=== PATIENT | female | born 1995 | race Hispanic/Latino ===

== ENCOUNTER 2017-09-23 01:58 | Inpatient (IN) | payer OTHER ==
[2017-09-23 02:25] VITALS: BMI 29.9
[2017-09-23] MEDS ORDERED: Ibuprofen 800 MG TAB PO PRN (04:03)
[2017-09-23] MEDS ORDERED: HYDROcodone/Acetaminophen 5/325 mg Tablet PO PRN ×4 (04:03→21:56)
[2017-09-23] MEDS ORDERED: Lidocaine 1% (PF) 30 ML VIAL SC PRN (04:03)
[2017-09-23] MEDS ORDERED: Ondansetron HCl/PF 4 MG/2 ML Vial IVP PRN ×3 (04:03→21:56)
[2017-09-23] MEDS ORDERED: Ondansetron ODT 4 MG TAB PO PRN (04:10)
[2017-09-23] MEDS ORDERED: Bupivacaine 0.5% 20 ML, fentaNYL Citrate/PF 400 MCG in Sodium Chloride 0.9% 72 ML EPIDURAL SCH (04:15)
[2017-09-23] MEDS ORDERED: Lactated Ringer's 1,000 ML IV SCH (04:15)
[2017-09-23] MEDS ORDERED: DISCONTINUE ALL PREVIOUS NARCOTICS FS SCH (04:15)
[2017-09-23] MEDS: Lactated Ringer's 1,000 ML IV SCH (04:18)
[2017-09-23 04:41] LABS: Hemoglobin 13.5 g/dL (12.0-16.0); Mean Corpuscular HGB CONC 34.5 g/dL (32.0-36.0); Mean Corpuscular Hemoglobin 30.1 pg (27.0-31.0); Mean Corpuscular Volume 87.2 fl (81.0-99.0); Mean Platelet Volume 10.2 fL (7.4-10.4); Platelet Count 142 thou/uL (130-400); RBC Distribution Width 13.4 % (11.5-14.5); Red Blood Cell (RBC) Count 4.49 mill/uL (4.20-5.40); White Blood Cell (WBC) Count 11.7 thou/uL (4.8-10.8)
[2017-09-23 04:51] LABS: HBSAg Index 0.15 S/CO (0-0.99); Hep B Surf Ag Non-Reactive S/CO (NonReactive)
[2017-09-23] MEDS ORDERED: Morphine 4 MG/ML Carpuject SLOW IVP SCH (05:00)
[2017-09-23 05:16] LABS: Syphilis Antibody Nonreactive (Nonreactive); Syphilis Antibody Index 0.03 S/CO (<1.00 Non-Reactive)
[2017-09-23] MEDS ORDERED: Acetaminophen 325 MG TAB PO PRN (05:49)
[2017-09-23] MEDS ORDERED: ePHEDrine/0.9% NaCl/PF SYRINGE 50 mg/10 ml SLOW IVP PRN (05:49)
[2017-09-23] MEDS ORDERED: Eucerin (Mineral Oil/Petrolatum,White) 30 gm Jar TOP PRN (05:49)
[2017-09-23] MEDS ORDERED: Promethazine HCl 25 MG/ML VIAL IM PRN (05:49)
[2017-09-23] MEDS ORDERED: Lactated Ringer's 500 ML IV PRN (05:49)
[2017-09-23] MEDS ORDERED: diphenhydrAMINE 50 MG/ML VIAL IVP PRN (05:49)
[2017-09-23] MEDS ORDERED: Naloxone HCl 0.4 mg/ml Vial IVP PRN ×2 (05:49)
[2017-09-23] MEDS ORDERED: Communication Order-Pharmacy FS SCH (06:00)
[2017-09-23] MEDS ORDERED: Fentanyl 4mcg/Marcaine 0.1% Cassette 100 ML EPIDURAL SCH (06:00)
--- NOTE | 2017-09-23 08:14 | PDOC.LDHP ---
Labor and Delivery H&P Chief complaint: contractions HPI: Patient started gianna at 2140 09/22/17 and came to the hospital at 0230 inthe morning. The baby is moving normally. Her water is not intact. Current gestational age (weeks): 40 Due date: 09/17/17 Dating criteria: first trimester ultrasound Grav: 1 Para: 0 Current complications: none Abnormal US findings: No Past Medical History: gastrochisis repaired as infant. Intentinal obstruction 2014 XLab LSIL pap Current medications: pre-amber vitamins, iron Previous surgical history: none (Gastorchisis repair Xlap for intestinal obstruction 2014) Allergies/Adverse Reactions: Allergies Allergy/AdvReac Type Severity Reaction Status Date / Time No Known Allergies Allergy Verified 08/22/14 02:40 - Physical Exam Vital signs reviewed and normal: yes General: NAD, resting Heart: RRR Lungs: nonlabored breathing Abdomen: gravid FHT: category 2 (minimal to moderate variability, +accel, no decels, 130 bpm) - Vaginal Exam cm dilated: 6 Effacement: 100% Station: -2 - OB Labs RH: positive Antibody Screen: negative HIV: negative RPR: negative HEPSAg: negative 1 hour GCT: negative GBS: negative Urine drug screen: not done Rubella: immune - Assessment L&D Assessment: term patient in labor - Plan Plan: admit to L&D
[2017-09-23] MEDS: Dextrose 5%-Lactated Ringers 1,000 ML IV SCH (08:40)
[2017-09-23] MEDS ORDERED: Gentamicin 80 MG/2 ML VIAL IVPB SCH (12:15)
[2017-09-23] MEDS ORDERED: Acetaminophen 500 MG TAB PO SCH ×2 (12:15→13:00)
[2017-09-23] MEDS ORDERED: Gentamicin Sulfate 310 MG in Sodium Chloride 0.9% 100 ML IVPB SCH (12:15)
[2017-09-23] MEDS ORDERED: CEFAZOLIN/Water 2 GM/20 ML SYRINGE ONE ×2 (12:26→14:17)
[2017-09-23] MEDS: NS / Oxytocin 40 units/1000ml 1,000 ML IV PRN ×2 (13:05→14:14)
--- NOTE | 2017-09-23 13:26 | PDOC.OPDEL ---
OB Operative/Delivery Note Delivery Dr/Surgeon: Graciela Perdue CNM Assist: Dr. Valladares Pre-Delivery Diagnosis: active labor, non-reassuring tracing ( tachycardia) Procedure/Post Delivery Dx: spontaneous vaginal delivery Weeks gestation: 40 Anesthesia: epidural - Findings A Sex: male Weight: 8 lb 1 oz - 1 min: 6 - 5 min: 7 - Additional Findings/Plan Placenta delivered: spontaneous Repaired Obstetrical Laceration: 1st degree Estimated blood loss: 400mL Compilations/Other Findings: tachycardia starting at approximately 1140 with FHT 200bpm. Maternal tachycardia 140-180s. Maternal fever 103.1 chorioamnionitis, thick meconium, sepsis. Dr. Valladares was consulted immediately prior to delivery and was present at the bedside until completed in case an expidited delivery was needed with Vaccuum. We discussed case following the delivery and agreed on Plan of care for sepsis workup with blood cultures and lactic acid labs. The patients clinical course was impoving quickly following delivery. IV antibiotics were continued. first degree perineal laceration repaired Post delivery plan: routine recovery (Continue ABX for 24 hours)
[2017-09-23 13:51] LABS: Actual Bicarbonate (HCO3a) 21.6 mEq/L (22-26); Actual Bicarbonate (HCO3v) 20 mEq/L (22-26); Base Excess -8.4 mEq/L (0 (+/- 2.5)); Base Excess (BEa) -8.2 mEq/L (0 (+/-) 2.5)
[2017-09-23] MEDS: Ampicillin 2 GM in Sodium Chloride 0.9% 100 ML IVPB SCH (14:44)
[2017-09-23 14:45] LABS: Hemoglobin 11.7 g/dL (12.0-16.0); Mean Corpuscular HGB CONC 34.1 g/dL (32.0-36.0); Mean Corpuscular Hemoglobin 30.2 pg (27.0-31.0); Mean Corpuscular Volume 88.5 fl (81.0-99.0); Mean Platelet Volume 10.1 fL (7.4-10.4); Platelet Count 128 thou/uL (130-400); RBC Distribution Width 13.3 % (11.5-14.5); Red Blood Cell (RBC) Count 3.87 mill/uL (4.20-5.40); White Blood Cell (WBC) Count 22.5 thou/uL (4.8-10.8)
[2017-09-23] MEDS ORDERED: Acetaminophen 325 MG TAB PO SCH (14:45)
[2017-09-23 14:58] LABS: Band 10 % (5-11); Lymphocytes 6 % (21-51); MDiff Complete? YES; Monocytes 10 % (0-10); Neutrophil 74 % (42-75); Ovalocytes SLIGHT = 2-5 cells (100X) (0-1/hpf); PLT Morphology Comment Appears Decreased; Polychromasia SLIGHT = 2-3 cells (100X) (0-2/hpf)
[2017-09-23 15:02] LABS: Lactic Acid 3.7 mmol/L (0.5-2.2)
[2017-09-23] MEDS ORDERED: Ampicillin 125 MG/5 ML VIAL SLOW IVP SCH (18:00)
[2017-09-23] MEDS ORDERED: Milk Of Magnesia 30 ML UDCUP PO PRN (21:56)
[2017-09-23] MEDS ORDERED: Adacel (T-DAP) 0.5 ML VIAL IM ONE (21:56)
[2017-09-23] MEDS ORDERED: Methylergonovine 0.2 MG/ML VIAL IM PRN (21:56)
[2017-09-23] MEDS ORDERED: NS / Oxytocin 40 units/1000ml 1,000 ML IV SCH (21:56)
[2017-09-23] MEDS ORDERED: Benzocaine/Menthol 20-0.5% 60 ML CAN TOP PRN (21:56)
[2017-09-23] MEDS ORDERED: Bisacodyl 10 MG SUPP PR PRN (21:56)
[2017-09-23 22:46] LABS: #Lymphocytes 2.6 thou/uL (1.20-3.40); #Monocytes 1.6 thou/uL (0.11-0.59); %Basophils 0.1 % (0.0-1.0); %Eosinophils 0.1 % (0.0-10.0); %Lymphocytes 15.2 % (21.0-51.0); %Monocytes 9.2 % (0.0-10.0); %Neutrophils 75.2 % (42.0-75.0); Hemoglobin 10.7 g/dL (12.0-16.0); Mean Corpuscular HGB CONC 33.4 g/dL (32.0-36.0); Mean Corpuscular Hemoglobin 29.7 pg (27.0-31.0); Mean Corpuscular Volume 88.8 fl (81.0-99.0); Mean Platelet Volume 9.9 fL (7.4-10.4); Platelet Count 126 thou/uL (130-400); RBC Distribution Width 13.6 % (11.5-14.5); Red Blood Cell (RBC) Count 3.59 mill/uL (4.20-5.40); White Blood Cell (WBC) Count 17.3 thou/uL (4.8-10.8)
[2017-09-24] MEDS: Docusate Calcium (SURFAK) 240 MG CAP PO SCH ×3 (05:13→22:53)
[2017-09-24] MEDS: Ibuprofen 800 MG TAB PO SCH ×4 (05:13→22:53)
[2017-09-24 08:27] LABS: Lactic Acid 1.3 mmol/L (0.5-2.2)
[2017-09-24 08:42] LABS: Band 16 % (5-11); Hemoglobin 11.2 g/dL (12.0-16.0); Large Platelets SLIGHT; Lymphocytes 21 % (21-51); MDiff Complete? YES; Mean Corpuscular HGB CONC 33.3 g/dL (32.0-36.0); Mean Corpuscular Hemoglobin 29.8 pg (27.0-31.0); Mean Corpuscular Volume 89.3 fl (81.0-99.0); Mean Platelet Volume 10.1 fL (7.4-10.4); Monocytes 7 % (0-10); Neutrophil 55 % (42-75); PLT Morphology Comment Appears Decreased; Platelet Count 124 thou/uL (130-400); RBC Distribution Width 13.5 % (11.5-14.5); RBC Morphology Normal; Reactive Lymphocytes 1 % (0-10); Red Blood Cell (RBC) Count 3.75 mill/uL (4.20-5.40); White Blood Cell (WBC) Count 14.7 thou/uL (4.8-10.8)
--- NOTE | 2017-09-24 09:54 | PDOC.PP ---
Post Progress Note Post Day #: 1 Subjective: norman is feeling much better, up to see in NICU. pumping, but not getting anything out. PO intake tolerated: yes Flatus: yes Ambulation: yes Vital Signs (12 hours) Temp Pulse Resp BP 09/24/17 08:00 98.6 F 85 18 09/24/17 04:00 98.6 F 85 18 101/51 L 09/24/17 00:00 98.3 F 88 18 116/55 L Weight Weight 169 lb - Physical Examination General: NAD Cardiovascular: RRR Respiratory: non-labored breathing Abdominal: appropriately TTP Fundus firm & at: Umbilicus Extremities: negative homans (B) Skin: no rash Neurological: no gross focal deficits Psychiatric: A&Ox3 Result Diagrams: 09/24/17 07:52 Additional Labs: Post Labs Blood Type O POSITIVE 09/23/17 04:10 Hep Bs Antigen Non-Reactive S/CO (NonReactive) 09/23/17 04:10 Laboratory Tests 09/23/17 09/24/17 09/24/17 14:31 07:52 07:52 WBC 14.7 H RBC 3.75 L Hgb 11.2 L Hct 33.5 L MCV 89.3 MCH 29.8 MCHC 33.3 RDW 13.5 Plt Count 124 L MPV 10.1 Neutrophils % (Manual) 55 Band Neuts % (Manual) 16 H Lymphocytes % (Manual) 21 Reactive Lymphs % 1 Monocytes % (Manual) 7 Large Platelets SLIGHT Plt Morphology Comment Appears Decreased L RBC Morph Comment Normal Lactic Acid 3.7 H 1.3 (1) (spontaneous vaginal delivery) Code(s): O80 - ENCOUNTER FOR FULL-TERM UNCOMPLICATED DELIVERY Status: Acute (2) Chorioamnionitis Code(s): O41.1290 - CHORIOAMNIONITIS, UNSP TRIMESTER, NOT APPLICABLE OR UNSP Status: Acute (3) Sepsis Code(s): A41.9 - SEPSIS, UNSPECIFIED ORGANISM Status: Acute Qualifiers: Sepsis type: sepsis during labor Qualified Code(s): O75.3 - Other infection during labor (4) Lactic acid increased Code(s): E87.2 - ACIDOSIS Status: Acute (5) tachycardia affecting management of mother Code(s): O76 - ABNLT IN HEART RATE AND RHYTHM COMP LABOR AND DELIVERY Status: Acute - Assessment/Plan A: G1 now P1 s/p complicated by sepsis during labor. Decreasing lactic acid levels and WBC. Band are high. see lab section. P: consulted with Ob hospitalist and will continue to co-manage patient. Discussed continuing IV antibiotics with Dr. Valladares, since the patient is clinically improved, the previous discontinued antibiotics were not restarted. consult ordered.
[2017-09-24] MEDS: Prenatal Vitamin 1 TAB PO SCH (10:05)
[2017-09-24] MEDS ORDERED: Gentamicin 80 MG/2 ML VIAL IVPB SCH (10:45)
[2017-09-24] MEDS: Ferrous Sulfate 325 MG TAB PO SCH ×2 (10:57→17:32)
[2017-09-24] MEDS ORDERED: Sodium Chloride 0.9% 10 ML ONE ×2 (11:30→18:43)
[2017-09-24] MEDS: SODIUM CHLORIDE IVPB SCH (11:35)
[2017-09-24] MEDS: GENTAMICIN SULFATE IVPB SCH (11:35)
[2017-09-24] MEDS: ADMIXTURE FEE IVPB SCH (11:35)
[2017-09-24] MEDS: Ampicillin 1 GM in Sodium Chloride 0.9% 100 ML IVPB SCH ×2 (13:40→18:48)
--- NOTE | 2017-09-24 14:09 | CON ---
DATE OF SERVICE: 09/23/2017 CONSULTING PROVIDER: ZACHARIAH Diane I was called to the room due to maternal and tachycardia at the time of pushing. She was noted to be febrile and received Tylenol. She appeared to be imminently delivering, however, I stayed in the room for possible expedited delivery with a vacuum assist. She proceeded to deliver a male infan t. Following delivery, I recommended ordering lactic acid, blood cultures, and a CBC. The patient i mmediately clinically improved. She continued antibiotics . I remain available for any ac [place] change in clinical status.
[2017-09-25] MEDS: Ampicillin 1 GM in Sodium Chloride 0.9% 100 ML IVPB SCH ×2 (01:08→14:27)
[2017-09-25] MEDS: Ibuprofen 800 MG TAB PO SCH ×4 (06:05→22:10)
[2017-09-25] MEDS: Docusate Calcium (SURFAK) 240 MG CAP PO SCH ×2 (10:15→22:10)
[2017-09-25] MEDS: Prenatal Vitamin 1 TAB PO SCH (10:15)
[2017-09-25] MEDS ORDERED: Bupivacaine HCl 0.25%/Epi 0.0005/PF 10 ML VIAL FS ONE (11:11)
--- NOTE | 2017-09-25 14:06 | PDOC.PP ---
Post Progress Note Post Day #: 2 Subjective: patient is doing well. no fevers, but she still feels sore. at the breast and going every three hours to NICU to feed the baby PO intake tolerated: yes Flatus: yes Ambulation: yes Vital Signs (12 hours) Temp Pulse Resp BP 09/25/17 08:51 98.0 F 55 L 20 107/65 09/25/17 08:12 98.0 F 55 L 20 09/25/17 05:30 98.3 F 74 18 113/64 Weight Weight 169 lb - Physical Examination General: NAD Cardiovascular: no m/r/g Respiratory: non-labored breathing Abdominal: lochia (minimal), appropriately TTP Fundus firm & at: -1 Extremities: negative homans (B) Skin: no rash Perineum: minimal edema Neurological: no gross focal deficits Psychiatric: A&Ox3 Result Diagrams: 09/24/17 07:52 Additional Labs: Post Labs Blood Type O POSITIVE 09/23/17 04:10 Hep Bs Antigen Non-Reactive S/CO (NonReactive) 09/23/17 04:10 (1) (spontaneous vaginal delivery) Code(s): O80 - ENCOUNTER FOR FULL-TERM UNCOMPLICATED DELIVERY Status: Acute (2) Chorioamnionitis Code(s): O41.1290 - CHORIOAMNIONITIS, UNSP TRIMESTER, NOT APPLICABLE OR UNSP Status: Acute (3) Sepsis Code(s): A41.9 - SEPSIS, UNSPECIFIED ORGANISM Status: Acute Qualifiers: Sepsis type: sepsis during labor Qualified Code(s): O75.3 - Other infection during labor (4) Lactic acid increased Code(s): E87.2 - ACIDOSIS Status: Acute (5) tachycardia affecting management of mother Code(s): O76 - ABNLT IN HEART RATE AND RHYTHM COMP LABOR AND DELIVERY Status: Acute - Assessment/Plan A: G1 now P1 s/p complicated by chorio/sepsis. Vital signs are normal on abx for the past 24 hours. P: discontinue abx and continue to observe the patient for the next 24 hours - if she remains afebrile, She can be discharged home tomorrow.
[2017-09-25] MEDS: Ferrous Sulfate 325 MG TAB PO SCH ×2 (14:26→14:27)
[2017-09-25] MEDS: GENTAMICIN SULFATE IVPB SCH (14:27)
[2017-09-25] MEDS: SODIUM CHLORIDE IVPB SCH (14:27)
[2017-09-25] MEDS: ADMIXTURE FEE IVPB SCH (14:27)
[2017-09-25] MEDS: Dextrose 5%-Lactated Ringers 1,000 ML IV SCH (14:29)
[2017-09-25] MEDS: Lactated Ringer's 1,000 ML IV SCH (14:29)
[2017-09-25] MEDS: Ampicillin 2 GM in Sodium Chloride 0.9% 100 ML IVPB SCH (14:30)
[2017-09-25] MEDS ORDERED: Lanolin Ointment 7 GM TUBE TOP PRN (20:54)
[2017-09-26] MEDS: Ibuprofen 800 MG TAB PO SCH ×2 (06:58→13:36)
[2017-09-26] MEDS: Ferrous Sulfate 325 MG TAB PO SCH (07:25)
[2017-09-26 08:55] VITALS: BP 108/59; TEMP 97.8
[2017-09-26] MEDS: Prenatal Vitamin 1 TAB PO SCH (10:31)
[2017-09-26] MEDS: Docusate Calcium (SURFAK) 240 MG CAP PO SCH (10:31)
== END 2017-09-26 14:25 | disposition home or self-care (01) | DRG 774 ==
LOC: L&D/OP 01:58 → L&D 03:45 → 3SW 17:44
PROVIDERS: ADMIT Obstetrics & Gynecology; ATTEND Obstetrics & Gynecology
PROC: 10E0XZZ Delivery of Products of Conception, External Approach (ICD-10-PCS; principal; 2017-09-24)
PROC: 0HQ9XZZ Repair Perineum Skin, External Approach (ICD-10-PCS; 2017-09-24)
DX: O75.3 Other infection during labor (principal); O41.1230 Chorioamnionitis, third trimester, not applicable or unspecified; A41.9 Sepsis, unspecified organism; O76 Abnormality in fetal heart rate and rhythm complicating labor and delivery; O70.0 First degree perineal laceration during delivery; O77.0 Labor and delivery complicated by meconium in amniotic fluid; Z3A.40 40 weeks gestation of pregnancy; Z37.0 Single live birth
CPT/HCPCS: 36415; 51702; 82805; 83605; 85007; 85027; 86780; 86850; 86900; 86901; 87040; 87340; 88307; 99285; A4216; J0290; J1580; J2001; J3010; J3490; J7050; Q0162

== ENCOUNTER 2017-11-09 13:21 | Outpatient (CLI) | payer OTHER, MEDICAID | END 2017-11-09 13:22 | disposition home or self-care (01) | LOC: BICRAD 13:21 | PROVIDERS: ATTEND Advanced Practice Midwife | DX: M53.3 Sacrococcygeal disorders, not elsewhere classified (principal) | CPT/HCPCS: 72220 ==

== ENCOUNTER 2020-02-26 11:39 | Emergency (ER) | payer OTHER, SELFPAY ==
[~2020-02-26 11:39] MED LIST: Iopamidol 370 76% 50 ML VIAL FS ONE; Iopamidol-370 76% 500 ML 1 ML ONE
[2020-02-26 12:39] LABS: #Basophils 0.1 thou/uL (0.0-0.2); #Lymphocytes 1.7 thou/uL (1.20-3.40); #Monocytes 0.5 thou/uL (0.11-0.59); #Neutrophils 7.1 thou/uL (1.40-6.50); %Basophils 0.6 % (0.0-1.0); %Eosinophils 0.3 % (0.0-10.0); %Lymphocytes 17.8 % (21.0-51.0); %Neutrophils 76.3 % (42.0-75.0); Mean Corpuscular HGB CONC 33.3 g/dL (32.0-36.0); Mean Corpuscular Hemoglobin 29.8 pg (27.0-31.0); Mean Corpuscular Volume 89.5 fL (78.0-98.0); Mean Platelet Volume 9.2 fL (7.4-10.4); Platelet Count 269 thou/uL (130-400); RBC Distribution Width 11.9 % (11.5-14.5); Red Blood Cell (RBC) Count 5.02 mill/uL (4.20-5.40); White Blood Cell (WBC) Count 9.4 thou/uL (4.8-10.8)
[2020-02-26 12:53] LABS: ALT (SGPT) 10 U/L (8-55); AST (SGOT) 17 U/L (5-34); Albumin 4.5 g/dL (3.5-5.0); Alkaline Phosphatase 73 U/L (40-110); Anion Gap 13 mmol/L (10-20); BUN (Urea Nitrogen) 11 mg/dL (7.0-18.7); Bilirubin, Total 0.7 mg/dL (0.2-1.2); Calc. Creatinine Clearance 0 mL/min (70-130); Calcium 9.3 mg/dL (7.8-10.44); Carbon Dioxide 26 mmol/L (22-29); Chloride 104 mmol/L (98-107); Estimated GFR-MDRD 76; Globulin 3.7 g/dL (2.4-3.5); Glucose 97 mg/dL (70-105); Lipase 17 U/L (8-78); Potassium 4.2 mmol/L (3.5-5.1); Protein, Total 8.2 g/dL (6.0-8.3); Sodium 139 mmol/L (136-145)
[2020-02-26 12:56] LABS: BHCG - Serum Negative (NEGATIVE); Pregs Control Background? CLEAR/WHITE (CLR/WHITE); Pregs Control Bar Appear? YES (CONTROL BAR)
[2020-02-26] MEDS ORDERED: Ondansetron PF 4 MG/2 ML Vial ONE ×2 (13:53→16:25)
--- NOTE | 2020-02-26 16:07 | CT ---
EXAM: CT ABDOMEN AND PELVIS HISTORY: Left abdominal pain. COMPARISON: None. Procedure: Multiple contiguous axial images were obtained and a CT of the abdomen and pelvis with IV contrast. C oronal reformats were performed. FINDINGS: Lower Chest: within normal limits. Vessels: Normal caliber aorta Heart: Normal heart Abdomen: Portal vein:Patent Gallbladder: No calcified gallstones. Normal caliber wall. Liver: within normal limits. Pancreas: within normal limits. Spleen: within normal limits. Adrenals: within normal limits. Kidneys: Symmetric enhancement. No obstructive uropathy. Peritoneum: No ascites or free air, no fluid collection. Bowel: No evidence of bowel obstruction. Ileocecal junction is unremarkable. Scattered fecal material in a nondistended, nondilated colon. Findings compatible with congenital malrotation. Appendix is not appreciated. No obvious inflammatory changes in cecal apex which is in the left lower quadrant. Mesentery and Retroperitoneum: No enlarged mesenteric or retroperitoneal lymph nodes. Abdominal Wall: within normal limits. Pelvis: Reproductive Organs: There is an intrauterine device. Intrauterine device appears to be in the lower uterine segment. Pelvis: No mass, lymphadenopathy, free air or free fluid. Bladder: within normal limits. Bones: within normal limits. IMPRESSION: 1. Findings redemonstrated is congenital malrotation. No bowel obstruction. 2. Appendix is not appreciated. No definite signs of inflammation at the cecal apex 3. Intrauterine device is demonstrated and appears to be low-lying.
[2020-02-26 16:16] LABS: Bilirubin Negative (Negative); Blood, Urine Negative (Negative); Clarity Clear (Clear); Glucose, Urine (Dipstick) Normal (Negative); Ketone, Urine Negative (Negative); Leukocyte Negative Leu/uL (Negative); Nitrite Negative (Negative); Protein, Urine (Dipstick) Negative (Neg-Trace); Specific Gravity, Urine 1.002 (1.002-1.036); Urobilinogen Normal mg/dL (Less than 2)
== END 2020-02-26 16:32 | disposition home or self-care (01) ==
LOC: ERS 11:39
DX: R10.32 Left lower quadrant pain (principal); R63.0 Anorexia
CPT/HCPCS: 36415; 74177; 80053; 81003; 83690; 84703; 85025; 96374; 96376; J2405; Q9967

== ENCOUNTER 2021-05-31 06:49 | Outpatient (CLI) | payer BC, MEDICAID | END 2021-05-31 06:50 | disposition home or self-care (01) | LOC: BICULT 06:49 | PROVIDERS: ATTEND Family Medicine | DX: T83.32XA Displacement of intrauterine contraceptive device, initial encounter (principal) | CPT/HCPCS: 76856 ==